=== PATIENT | male | born 1990 | race Two or more races ===

== ENCOUNTER 2021-05-10 18:35 | Emergency (ER) | payer SELFPAY ==
[~2021-05-10] VITALS: Ht 180.3 cm; Wt 73.5 kg
[2021-05-10 19:59] LABS: Urine Amorphous Crystal MOD /hpf (None Seen); Urine Bacteria NONE SEEN /hpf (None Seen); Urine Blood Negative /uL (Negative); Urine Hyaline Cast FEW /lpf (0 - 2); Urine Mucus FEW (None Seen); Urine Specific Gravity 1.028 (1.001-1.035); Urine WBC 1 /hpf (0 - 3)
[2021-05-10 20:06] LABS: Basophils # (auto) 0 10 ^3/uL (0-0.2); Basophils % (auto) 0.3 % (0.0-2.0); Eosinophils # (auto) 0 10 ^3/uL (0-0.8); Eosinophils % (auto) 0.5 % (0.0-7.0); Hematocrit 44.5 % (41.0-53.0); Lymphocytes # (auto) 1.5 10 ^3/uL (0.4-5.4); Lymphocytes % (auto) 23.9 % (10.0-50.0); Mean Corpuscular Hemoglobin 27.8 pg (28.0-32.0); Mean Corpuscular Hgb Conc. 33.7 g/dL (32.0-36.0); Mean Corpuscular Volume 82.6 fL (80.0-100.0); Monocytes # (auto) 0.6 10 ^3/uL (0-1.3); Monocytes % (auto) 9.4 % (0.0-12.0); Neutrophils # (auto) 4.1 10 ^3/uL (1.6-8.6); Neutrophils % (auto) 65.9 % (37.0-80.0); Nucleated Red Blood Cells % 0.1 %; Red Blood Cells 5.39 10^6/uL (4.5-5.90); Red Cell Distribution Width 13.7 % (11.8-14.3); White Blood Cell 6.2 10^3/uL (4.4-10.8)
[2021-05-10] MEDS ORDERED: ONDANSETRON ODT 4 MG TAB PO ONE (20:15)
[2021-05-10] MEDS ORDERED: PANTOPRAZOLE 40 MG TAB PO ONE (20:15)
[2021-05-10 20:38] LABS: Albumin 4.3 g/dL (3.4-5.0); Calcium 9.5 mg/dL (8.5-10.1); Potassium 3.9 mmol/L (3.5-5.1)
[2021-05-10 20:41] LABS: BUN/Creatinine Ratio 19.4; Bilirubin, Total 1.2 mg/dL (0.2-1.0); Total Protein 8.5 g/dL (6.4-8.2)
[2021-05-10 20:49] VITALS: BP 133/92
== END 2021-05-10 20:50 | disposition home or self-care (01) ==
LOC: ER 18:36
DX: R10.84 Generalized abdominal pain (principal); F12.10 Cannabis abuse, uncomplicated
CPT/HCPCS: 36415; 74176; 80053; 81001; 83690; 85025; 99284; Q0162

== ENCOUNTER 2021-05-23 15:18 | Emergency (ER) | payer SELFPAY ==
[2021-05-23 16:48] LABS: Basophils # (auto) 0 10 ^3/uL (0-0.2); Basophils % (auto) 0.4 % (0.0-2.0); Eosinophils # (auto) 0.1 10 ^3/uL (0-0.8); Eosinophils % (auto) 0.8 % (0.0-7.0); Hematocrit 43.9 % (41.0-53.0); Hemoglobin 14.5 g/dL (13.5-17.5); Lymphocytes # (auto) 1.6 10 ^3/uL (0.4-5.4); Lymphocytes % (auto) 21.4 % (10.0-50.0); Mean Corpuscular Hemoglobin 27.9 pg (28.0-32.0); Mean Corpuscular Hgb Conc. 33.1 g/dL (32.0-36.0); Mean Corpuscular Volume 84.3 fL (80.0-100.0); Monocytes # (auto) 0.5 10 ^3/uL (0-1.3); Monocytes % (auto) 6.7 % (0.0-12.0); Neutrophils # (auto) 5.2 10 ^3/uL (1.6-8.6); Neutrophils % (auto) 70.7 % (37.0-80.0); Nucleated Red Blood Cells % 0.1 %; Red Blood Cells 5.21 10^6/uL (4.5-5.90); Red Cell Distribution Width 14.3 % (11.8-14.3); White Blood Cell 7.3 10^3/uL (4.4-10.8)
[2021-05-23 17:02] LABS: Albumin 3.9 g/dL (3.4-5.0); Calcium 9.1 mg/dL (8.5-10.1); Potassium 3.6 mmol/L (3.5-5.1)
[2021-05-23 17:07] LABS: BUN/Creatinine Ratio 14.7; Bilirubin, Total 0.7 mg/dL (0.2-1.0); Total Protein 7.8 g/dL (6.4-8.2)
[2021-05-23] MEDS ORDERED: OMEP-434 PO (19:39)
[2021-05-23] MEDS ORDERED: LIDOCAINE VISCOUS 2% 15ML UD PO ONE (19:45)
[2021-05-23] MEDS ORDERED: ALUM & MAG HYDROX-SIMETH LIQ(MAALOX) 30 ML PO ONE (19:45)
[2021-05-23 20:30] VITALS: BP 118/84
== END 2021-05-23 20:35 | disposition home or self-care (01) ==
LOC: ER 15:18
DX: R12 Heartburn (principal); F12.10 Cannabis abuse, uncomplicated
CPT/HCPCS: 36415; 80053; 82150; 83690; 85025; 93005

== ENCOUNTER 2023-03-12 13:09 | Emergency (ER) | payer MEDICAID ==
[~2023-03-12] VITALS: Ht 175.3 cm; Wt 67.5 kg
[~2023-03-12 13:09] MED LIST: OMEP-434 PO
[2023-03-12 14:13] LABS: Urine Bacteria FEW /hpf (None Seen); Urine Blood Negative /uL (Negative); Urine Budding Yeast OCCASIONAL /hpf (None Seen); Urine Clarity Clear (Clear); Urine Color Yellow (Yellow); Urine Mucus FEW (None Seen); Urine Protein, UAD TRACE (Negative); Urine Specific Gravity 1.027 (1.001-1.035); Urine Urobilinogen Normal (Negative); Urine WBC 1 /hpf (0 - 3); Urine pH 7.5 (5.0-8.0)
[2023-03-12 17:12] LABS: Basophils # (auto) 0 10 ^3/uL (0-0.2); Basophils % (auto) 0.3 % (0.0-2.0); Eosinophils # (auto) 0.1 10 ^3/uL (0-0.8); Hematocrit 44.6 % (41.0-53.0); Hemoglobin 14.5 g/dL (13.5-17.5); Lymphocytes # (auto) 2.1 10 ^3/uL (0.4-5.4); Mean Corpuscular Hemoglobin 26.8 pg (28.0-32.0); Mean Corpuscular Hgb Conc. 32.5 g/dL (32.0-36.0); Mean Corpuscular Volume 82.7 fL (80.0-100.0); Monocytes # (auto) 0.6 10 ^3/uL (0-1.3); Monocytes % (auto) 9.7 % (0.0-12.0); Neutrophils # (auto) 3.1 10 ^3/uL (1.6-8.6); Nucleated Red Blood Cells % 0.2 %; Red Blood Cells 5.39 10^6/uL (4.5-5.90); Red Cell Distribution Width 13.4 % (11.8-14.3); White Blood Cell 5.9 10^3/uL (4.4-10.8)
[2023-03-12 17:28] LABS: Alanine Aminotransferase 21 U/L (7-40); Albumin 4.7 g/dL (3.2-4.8); Alkaline Phosphatase 79 U/L (46-116); Anion Gap 9 (5-15); Aspartate Aminotransferase 21 U/L (13-40); BUN/Creatinine Ratio 11.2 (10.0-20.0); Blood Alcohol < 3.0 mg/dL (<10); Blood Urea Nitrogen 10 mg/dL (9-23); Calcium 10.1 mg/dL (8.7-10.4); Carbon Dioxide 28 mmol/L (20-30); Chloride 104 mmol/L (98-107); Glucose 92 mg/dL (74-106); INR 0.98 (0.9-1.15); Lipase 38 U/L (12-53); Magnesium 2.1 mg/dL (1.6-2.6); Partial Thromboplastin Time 29.3 SEC (24.5-34.5); Prothrombin Time 10.3 sec (9.3-11.8); Sodium 141 mmol/L (136-145)
[2023-03-12 17:29] LABS: Total Protein 7.9 g/dL (5.7-8.2)
[2023-03-12 21:55] VITALS: BP 130/70; PULSE 60; RESP 20; TEMP 98; O2SAT 98
== END 2023-03-12 21:57 | disposition home or self-care (01) ==
LOC: ER 13:09
DX: R10.32 Left lower quadrant pain (principal); R10.31 Right lower quadrant pain; F41.9 Anxiety disorder, unspecified; Z79.899 Other long term (current) drug therapy
CPT/HCPCS: 36415; 74176; 80053; 80320; 81001; 83690; 83735; 85025; 85610; 85730